=== PATIENT | male | born 1990 | race Caucasian/White ===

== ENCOUNTER 2016-11-12 14:22 | Emergency (ER) | payer OTHER ==
[~2016-11-12] VITALS: Ht 165.1 cm; Wt 77.1 kg
[2016-11-12 14:33] VITALS: BP 123/89
== END 2016-11-12 15:33 | disposition home or self-care (01) ==
LOC: ER 14:25
DX: M79.645 Pain in left finger(s) (principal); Z88.0 Allergy status to penicillin
CPT/HCPCS: 73140-TC; A4606; A6402; Z7610

== ENCOUNTER 2016-12-30 13:39 | Emergency (ER) | payer OTHER ==
[~2016-12-30] VITALS: Ht 175.3 cm; Wt 68.0 kg
[2016-12-30 13:39] VITALS: BP 135/73
== END 2016-12-30 15:35 | disposition home or self-care (01) ==
LOC: ER 13:41
DX: S92.351A Displaced fracture of fifth metatarsal bone, right foot, initial encounter for closed fracture (principal); X37.1XXA Tornado, initial encounter; Y93.89 Activity, other specified; Y92.89 Other specified places as the place of occurrence of the external cause; Y99.8 Other external cause status; Z88.1 Allergy status to other antibiotic agents
CPT/HCPCS: 29515; 73630; 99284; A4606; Z7610